=== PATIENT | male | born 1995 | race American Indian/Alaskan Native ===

== ENCOUNTER 2020-08-25 20:09 | Emergency (ER) | payer OTHER ==
--- NOTE | 2020-08-25 20:42 | EDM.PDOCBH ---
ED HPI GENERAL MEDICAL PROBLEM - General Chief Complaint: Behavioral/Psych Stated Complaint: POSSIBLE OVER DOSE Time Seen by Provider: 08/25/20 20:45 Source of Information: Reports: Patient, Old Records, RN History Limitations: Reports: No Limitations - History of Present Illness INITIAL COMMENTS - FREE TEXT/NARRATIVE: 25 yo male inmate has been hoarding his Klonopin for several days then took 20 x 0.1 mg dose all together about 1930h tonight. The aquatics coordinator became aware and brought him in for eval. Denies suicidal ideation. No other apparent ingestions. Onset: Today Onset Date: 08/25/20 Onset Time: 21:30 Duration: Minutes:, Constant Location: Reports: Generalized Quality: Reports: Other (pain not reported) Severity: Moderate Improves with: Reports: None Worsens with: Reports: None Context: Reports: Other (See HPI) Associated Symptoms: Reports: Other (sedation) Treatments [employer]ER: Reports: Other (see below) (none) - Related Data Allergies Allergy/AdvReac Type Severity Reaction Status Date / Time No Known Allergies Allergy Verified 08/25/20 20:31 Home Meds: Home Meds OLANZapine [Zyprexa] 10 mg PO BEDTIME 08/25/20 [History] cloNIDine [Catapres] 0.1 mg PO Q8H 08/25/20 [History] Past Medical History - Past Health History Medical/Surgical History: Denies Medical/Surgical History Musculoskeletal History: Reports: Fracture Psychiatric History: Reports: ADHD, Addiction, Anxiety, Bipolar, Depression, Psych Hospitalization(s), Suicide Attempt, Suicidal Ideation, Other (See Below) Other Psychiatric History: schizoaffective. 2010 in patient psych - Infectious Disease History Infectious Disease History: Reports: Chicken Pox - Past Surgical History HEENT Surgical History: Reports: Naso-Sinus Surgery Social & Family History - Tobacco Use Tobacco Use Status *Q: Current Every Day Tobacco User Years of Tobacco use: 14 Packs/Tins Daily: 2 Used Tobacco, but Quit: No - Caffeine Use Caffeine Use: Reports: Coffee, Energy Drinks, Soda, Tea - Alcohol Use Days Per Week of Alcohol Use: 7 Number of Drinks Per Day: 10 Total Drinks Per Week: 70 - Recreational Drug Use Recreational Drug Use: Yes Drug Use in Last 12 Months: Yes Recreational Drug Type: Reports: Cocaine, Heroin, Marijuana/Hashish, Methamphetamine, Other (see below) Other Recreational Drug Type: pills Recreational Drug Use Frequency: Not Used In Over 2 Months ED ROS GENERAL - Review of Systems Review Of Systems: See Below Constitutional: Reports: Malaise, Other (sleepiness) HEENT: Reports: No Symptoms Respiratory: Reports: No Symptoms Cardiovascular: Reports: No Symptoms GI/Abdominal: Reports: No Symptoms : Reports: No Symptoms Musculoskeletal: Reports: No Symptoms Skin: Reports: No Symptoms Neurological: Reports: Other (mild sedation) ED EXAM, BEHAVIORAL HEALTH - Physical Exam Exam: See Below Exam Limited By: No Limitations General Appearance: Alert, WD/WN, No Apparent Distress Eye Exam: Bilateral Eye: Normal Inspection, PERRL Ears: Normal External Exam, Normal Canal, Hearing Grossly Normal Nose: Normal Inspection, No Blood Throat/Mouth: Normal Inspection, Normal Lips, Normal Oropharynx, Normal Voice, No Airway Compromise Head: Atraumatic, Normocephalic Neck: Normal Inspection Respiratory/Chest: No Respiratory Distress, Lungs Clear, Normal Breath Sounds, No Accessory Muscle Use Cardiovascular: Regular Rate, Rhythm, No Edema GI/Abdominal: Normal Bowel Sounds, Soft, Non-Tender, No Distention Back Exam: Normal Inspection. No: CVA Tenderness (R), CVA Tenderness (L) Extremities: Normal Inspection, Normal Range of Motion, Non-Tender, No Pedal Edema Neurological: Alert, Normal Mood/Affect, CN II-XII Intact, Normal Cognition, Oriented x 3 Psychiatric: Alert, Normal Affect, Normal Cognition, Normal Mood, Oriented Skin Exam: Warm, Dry, Intact, Normal color, No rash #1 Interpretation EKG Date: 08/25/20 Time: 20:20 Rhythm: NSR Rate (Beats/Min): 64 [place]: Normal P-Wave: Present QRS: Normal ST-T: Normal QT: Normal Comparison: NA - No Prior EKG (peaked T waves.) COURSE, BEHAVIORAL HEALTH COMP - Course Vital Signs: Last Vital Signs Temp 36.3 C 08/25/20 20:20 Pulse 78 08/25/20 21:40 Resp 15 08/25/20 21:40 BP 107/59 L 08/25/20 21:40 Pulse Ox 95 08/25/20 21:40 Orders, Labs, Meds: Active Orders 24 hr Category Date Time Status EKG Documentation Completion [RC] ASDIRECTED Care 08/25/20 20:48 Active DRUG SCREEN, URINE [URCHEM] Stat Lab 08/25/20 20:17 Ordered EKG 12 Lead [EK] Routine Ther 08/25/20 20:48 Ordered Laboratory Tests 08/25/20 08/25/20 08/25/20 Range/Units 20:38 20:38 20:38 Sodium 141 (140-148) mmol/L Potassium 4.0 (3.6-5.2) mmol/L Chloride 103 (100-108) mmol/L Carbon Dioxide 27 (21-32) mmol/L Anion Gap 10.7 (5.0-14.0) mmol/L BUN 13 (7-18) mg/dL Creatinine 1.0 (0.8-1.3) mg/dL Est Cr Clr Drug Dosing 100.13 mL/min Estimated GFR (MDRD) > 60 (>60) Glucose 121 H (74-106) mg/dL Calcium 8.8 (8.5-10.1) mg/dL Total Bilirubin 0.3 (0.2-1.0) mg/dL AST 17 (15-37) U/L ALT 38 (12-78) U/L Alkaline Phosphatase 43 L (46-116) U/L Total Protein 6.5 (6.4-8.2) g/dL Albumin 3.7 (3.4-5.0) g/dL Globulin 2.8 (2.3-3.5) g/dL Albumin/Globulin Ratio 1.3 (1.2-2.2) Salicylates 1.1 L (2.0-20.0) mg/dL Acetaminophen 0.0 L (10.0-30.0) ug/mL Ethyl Alcohol mg/dL 08/25/20 Range/Units 20:38 Sodium (140-148) mmol/L Potassium (3.6-5.2) mmol/L Chloride (100-108) mmol/L Carbon Dioxide (21-32) mmol/L Anion Gap (5.0-14.0) mmol/L BUN (7-18) mg/dL Creatinine (0.8-1.3) mg/dL Est Cr Clr Drug Dosing mL/min Estimated GFR (MDRD) (>60) Glucose (74-106) mg/dL Calcium (8.5-10.1) mg/dL Total Bilirubin (0.2-1.0) mg/dL AST (15-37) U/L ALT (12-78) U/L Alkaline Phosphatase (46-116) U/L Total Protein (6.4-8.2) g/dL Albumin (3.4-5.0) g/dL Globulin (2.3-3.5) g/dL Albumin/Globulin Ratio (1.2-2.2) Salicylates (2.0-20.0) mg/dL Acetaminophen (10.0-30.0) ug/mL Ethyl Alcohol < 3 mg/dL Medications Discontinued Medications Generic Name Dose Route Start Last Admin Trade Name Marvin PRN Reason Stop Dose Admin Charcoal 50 gm 08/25/20 20:49 08/25/20 20:58 Actidose-Aqua PO 08/25/20 20:50 50 gm ONETIME ONE Administration Re-Assessment/Re-Exam: Drank the activated charcoal without issue. Is already feeling better he says. Re-Assessment/Re-Exam Date: 08/25/20 (no sign of extreme sedation, will discharge. ) Departure - Departure Time of Disposition: 22:30 Disposition: Home, Self-Care 01 Condition: Good Clinical Impression: Benzodiazepine (tranquilizer) overdose Qualifiers: Encounter type: initial encounter Injury intent: undetermined intent Qualified Code(s): T42.4X4A - Poisoning by benzodiazepines, undetermined, initial encounter - Discharge Information *PRESCRIPTION DRUG MONITORING PROGRAM REVIEWED*: No *COPY OF PRESCRIPTION DRUG MONITORING REPORT IN PATIENT [place]: No Referrals: PCP,None [Primary Care Provider] - Forms: ED Department Discharge Additional Instructions: Resume normal medications. Return as needed. Sepsis Event Note (ED) - Evaluation Sepsis Screening Result: No Definite Risk - Focused Exam Vital Signs: Vital Signs Temp Pulse Resp BP Pulse Ox 08/25/20 21:40 78 15 107/59 L 95 08/25/20 21:20 76 113/62 08/25/20 20:55 65 115/62 08/25/20 20:32 18 96 08/25/20 20:20 36.3 C 83 18 107/61 96 - My Orders Last 24 Hours: My Active Orders 08/25/20 20:17 DRUG SCREEN, URINE [URCHEM] Stat 08/25/20 20:48 EKG Documentation Completion [RC] ASDIRECTED EKG 12 Lead [EK] Routine - Assessment/Plan Last 24 Hours: My Active Orders 08/25/20 20:17 DRUG SCREEN, URINE [URCHEM] Stat 08/25/20 20:48 EKG Documentation Completion [RC] ASDIRECTED EKG 12 Lead [EK] Routine
[2020-08-25] MEDS ORDERED: Activated Charcoal/Water Susp 25 GM/120 ML Tube PO ONE (20:49)
[2020-08-25 21:45] VITALS: BP 107/59; PULSE 78
== END 2020-08-25 22:32 | disposition home or self-care (01) ==
LOC: JP.ED 20:09
DX: T42.4X4A Poisoning by benzodiazepines, undetermined, initial encounter (principal); F41.9 Anxiety disorder, unspecified; F31.9 Bipolar disorder, unspecified; F25.9 Schizoaffective disorder, unspecified; F17.210 Nicotine dependence, cigarettes, uncomplicated; Z79.899 Other long term (current) drug therapy
CPT/HCPCS: 36415; 80053; 80307; 93005; 93010; 99284-25

== ENCOUNTER 2022-07-29 06:17 | Emergency (ER) | payer OTHER ==
[2022-07-29] MEDS ORDERED: Sodium Chloride 0.9% 10 ML Syringe FLUSH PRN (06:20)
[2022-07-29] MEDS ORDERED: Sodium Chloride 0.9% 1,000 ML IV ONE (06:24)
[2022-07-29 06:50] LABS: ESTIMATED GFR 104 mL/min (>60)
[2022-07-29 10:32] VITALS: BP 116/81; PULSE 95
== END 2022-07-29 10:20 ==
LOC: JP.ED 06:17
DX: F15.129 Other stimulant abuse with intoxication, unspecified (principal); F12.10 Cannabis abuse, uncomplicated; F13.10 Sedative, hypnotic or anxiolytic abuse, uncomplicated; R40.2422 Glasgow coma scale score 9-12, at arrival to emergency department; R00.0 Tachycardia, unspecified
CPT/HCPCS: 36415; 80053; 80305; 80307; 82803; 85025; 93005; 96360; 99284; J3490; J7030

== ENCOUNTER 2022-10-13 18:46 | Emergency (ER) | payer OTHER ==
[2022-10-13 19:00] VITALS: BP 130/86; PULSE 119
== END 2022-10-13 19:07 ==
LOC: JP.ED 18:46
DX: F19.10 Other psychoactive substance abuse, uncomplicated (principal); F17.210 Nicotine dependence, cigarettes, uncomplicated
CPT/HCPCS: 99283

== ENCOUNTER 2023-02-22 20:52 | Emergency (ER) | payer MEDICAID, OTHER ==
[2023-02-23 02:59] VITALS: BP 128/71; PULSE 111
== END 2023-02-22 21:05 ==
LOC: JP.ED 20:52
DX: F10.920 Alcohol use, unspecified with intoxication, uncomplicated (principal); Z02.89 Encounter for other administrative examinations
CPT/HCPCS: 99282

== ENCOUNTER 2024-09-09 08:57 | Emergency (ER) | payer MEDICAID ==
[2024-09-09 09:16] LABS: BASOPHILS ABSOLUTE AUTO 0.04 K/uL (0.00-0.10); BASOPHILS PERCENT AUTO 0.4 % (0.1-1.3); HEMOGLOBIN 15.4 g/dL (12.9-16.9); IMMATURE GRAN ABSOLUTE AUTO 0.04 K/uL (0.00-0.23); IMMATURE GRAN PERCENT AUTO 0.4 % (0.0-0.7); LYMPHOCYTES ABSOLUTE AUTO 1.49 K/uL (0.8-3.3); LYMPHOCYTES PERCENT AUTO 15.6 % (11.4-47.7); MEAN CORPUSCULAR HEMOGLOBIN 32.5 pg (31.6-35.5); MEAN CORPUSCULAR HGB CONC 36.7 g/dL (31.6-35.5); MEAN CORPUSCULAR VOLUME 88.6 fL (81.4-99.0); MONOCYTES ABSOLUTE AUTO 0.42 K/uL (0.20-0.90); MONOCYTES PERCENT AUTO 4.4 % (3.3-12.6); NEUTROPHILS ABSOLUTE AUTO 7.49 K/uL (1.0-7.6); NEUTROPHILS PERCENT AUTO 78.2 % (40.0-78.1); PLATELET COUNT,PLT 259 K/uL (130-375); RED BLOOD CELL COUNT 4.74 M/uL (4.14-5.76); WHITE BLOOD CELL COUNT,WBC 9.6 K/uL (3.2-11.0)
[2024-09-09] MEDS: LORazepam 2 MG/ML SDV IM ONE (09:18)
[2024-09-09 09:45] LABS: A/G RATIO 1.1 (1.2-2.2); ALANINE AMINOTRANSFERASE,ALT 62 U/L (12-78); ALBUMIN 4.1 g/dL (3.4-5.0); ALKALINE PHOSPHATASE 48 U/L (46-116); ASPARTATE AMNIOTRANSFERASE,AST 33 U/L (15-37); BILIRUBIN TOTAL 0.8 mg/dL (0.2-1.0); BLOOD UREA NITROGEN,BUN 12 mg/dL (7-18); CALCIUM 8.7 mg/dL (8.5-10.1); CARBON DIOXIDE,CO2 18 mmol/L (21-32); CHLORIDE,CL 100 mmol/L (100-108); CREATININE 1.3 mg/dL (0.8-1.3); ESTIMATED GFR 75 mL/min (>60); GLUCOSE RANDOM 116 mg/dL (74-106); MAGNESIUM 1.9 mg/dL (1.8-2.4); POTASSIUM,K 3.5 mmol/L (3.6-5.2); PROTEIN TOTAL,TP 7.8 g/dL (6.4-8.2); SODIUM,NA 135 mmol/L (140-148); TSH ULTRASENSITIVE 0.952 uIU/mL (0.358-3.740)
[2024-09-09 09:49] LABS: ANION GAP 20.5 mmol/L (5.0-14.0)
[2024-09-09] MEDS: Sodium Chloride 0.9% 1,000 ML IV ONE (10:00)
[2024-09-09] MEDS: LORazepam 2 MG/ML SDV IVPUSH ONE ×4 (10:11→15:19)
[2024-09-09 11:04] LABS: APPEARANCE,URINE CLOUDY (CLEAR); BILIRUBIN,URINE NEGATIVE (NEGATIVE); COLOR,URINE YELLOW (YELLOW); GLUCOSE,URINE NEGATIVE (NEGATIVE); KETONES,URINE 80 mg/dL (NEGATIVE); LEUKOCYTE ESTERASE,URINE NEGATIVE (NEGATIVE); NITRITE,URINE NEGATIVE (NEGATIVE); OCCULT BLOOD,URINE NEGATIVE (NEGATIVE); PROTEIN,URINE NEGATIVE (NEGATIVE)
[2024-09-09 11:11] LABS: AMORPHOUS SEDIMENT,URINE MODERATE; BACTERIA,URINE NOT SEEN; EPITHELIAL CELLS,URINE NOT SEEN; MUCUS,URINE NOT SEEN; RBC,URINE 0-5 (0-5); WBC,URINE 0-5 (0-5)
[2024-09-09 11:12] LABS: AMPHETAMINES SCREEN, URINE NEGATIVE (NEGATIVE); BARBITURATE SCREEN,URINE NEGATIVE (NEGATIVE); BENZODIAZEPINES SCREEN,URINE NEGATIVE (NEGATIVE); METHADONE SCREEN, URINE NEGATIVE (NEGATIVE); METHAMPHETAMINES SCREEN, URINE PRESUMPTIVE POSITIVE (NEGATIVE); OXYCODONE SCREEN,URINE NEGATIVE (NEGATIVE); PROPOXYPHENE SCREEN,URINE NEGATIVE (NEGATIVE); THC SCREEN,URINE 50 NG/ML PRESUMPTIVE POSITIVE (NEGATIVE)
[2024-09-09] MEDS: Magnesium Sulfate/Water Premix 2 GM in Premix Bag 1 BAG IV ONE (11:35)
[2024-09-09] MEDS: Sodium Chloride 0.9% 1,000 ML IV SCH (11:36)
[2024-09-09] MEDS: Potassium Chloride 20 MEQ in Premix Bag 1 BAG IV ONE ×2 (11:37→14:17)
[2024-09-09 13:00] VITALS: BP 129/84; PULSE 107
[2024-09-09 13:36] LABS: ANION GAP 17.8 mmol/L (5.0-14.0); CALCIUM 7.6 mg/dL (8.5-10.1); CREATININE 1.2 mg/dL (0.8-1.3); EST CRCL DRUG DOSING (CG) 89.19 mL/min; MAGNESIUM 2.4 mg/dL (1.8-2.4); POTASSIUM,K 3.8 mmol/L (3.6-5.2)
== END 2024-09-09 15:45 ==
LOC: JP.ED 08:57
DX: T43.592A Poisoning by other antipsychotics and neuroleptics, intentional self-harm, initial encounter (principal); T43.292A Poisoning by other antidepressants, intentional self-harm, initial encounter; R45.1 Restlessness and agitation; R82.5 Elevated urine levels of drugs, medicaments and biological substances; Z79.899 Other long term (current) drug therapy
CPT/HCPCS: 36415; 71045; 80048; 80053; 80143; 80179; 80305; 80307; 81001; 83735; 84443; 85025; 93005; 96365; 96366; 96367; 96368; 96372; 96375; 96376; 99285; C1758; J2060; J3475; J3480; J7030; 93010

== ENCOUNTER 2024-12-08 08:59 | Emergency (ER) | payer MEDICAID ==
[2024-12-08 09:44] LABS: BASOPHILS ABSOLUTE AUTO 0.05 K/uL (0.00-0.10); BASOPHILS PERCENT AUTO 0.7 % (0.1-1.3); EOSINOPHILS ABSOLUTE AUTO 0.25 K/uL (0.00-0.40); EOSINOPHILS PERCENT AUTO 3.4 % (0.0-5.4); HEMATOCRIT 40.2 % (38.4-49.7); HEMOGLOBIN 13.7 g/dL (12.9-16.9); IMMATURE GRAN PERCENT AUTO 0.3 % (0.0-0.7); LYMPHOCYTES ABSOLUTE AUTO 1.92 K/uL (0.8-3.3); LYMPHOCYTES PERCENT AUTO 26.2 % (11.4-47.7); MEAN CORPUSCULAR HGB CONC 34.1 g/dL (31.6-35.5); MEAN CORPUSCULAR VOLUME 96.9 fL (81.4-99.0); MONOCYTES ABSOLUTE AUTO 0.41 K/uL (0.20-0.90); MONOCYTES PERCENT AUTO 5.6 % (3.3-12.6); NEUTROPHILS ABSOLUTE AUTO 4.68 K/uL (1.0-7.6); NEUTROPHILS PERCENT AUTO 63.8 % (40.0-78.1); PLATELET COUNT,PLT 219 K/uL (130-375); RED BLOOD CELL COUNT 4.15 M/uL (4.14-5.76); WHITE BLOOD CELL COUNT,WBC 7.3 K/uL (3.2-11.0)
[2024-12-08 09:46] LABS: IMMATURE GRAN ABSOLUTE AUTO 0.02 K/uL (0.00-0.23)
[2024-12-08 10:05] LABS: A/G RATIO 1.1 (1.2-2.2); ALANINE AMINOTRANSFERASE,ALT 53 U/L (12-78); ALBUMIN 3.4 g/dL (3.4-5.0); ALKALINE PHOSPHATASE 45 U/L (46-116); ANION GAP 9.7 mmol/L (5.0-14.0); ASPARTATE AMNIOTRANSFERASE,AST 28 U/L (15-37); BILIRUBIN TOTAL 0.1 mg/dL (0.2-1.0); BLOOD UREA NITROGEN,BUN 13 mg/dL (7-18); CARBON DIOXIDE,CO2 26 mmol/L (21-32); CHLORIDE,CL 104 mmol/L (100-108); EST CRCL DRUG DOSING (CG) 94.08 mL/min; ESTIMATED GFR 103 mL/min (>60); GLUCOSE RANDOM 124 mg/dL (74-106); POTASSIUM,K 4.3 mmol/L (3.6-5.2); PROTEIN TOTAL,TP 6.5 g/dL (6.4-8.2); SODIUM,NA 140 mmol/L (140-148)
[2024-12-08 10:06] VITALS: BP 147/79; PULSE 111
[2024-12-08 10:47] LABS: APPEARANCE,URINE CLEAR (CLEAR); BILIRUBIN,URINE NEGATIVE (NEGATIVE); COLOR,URINE YELLOW (YELLOW); GLUCOSE,URINE NEGATIVE (NEGATIVE); KETONES,URINE NEGATIVE (NEGATIVE); LEUKOCYTE ESTERASE,URINE NEGATIVE (NEGATIVE); NITRITE,URINE NEGATIVE (NEGATIVE); OCCULT BLOOD,URINE NEGATIVE (NEGATIVE); PROTEIN,URINE NEGATIVE (NEGATIVE); UROBILINOGEN,URINE 0.2 EU/dL (0.2-1.0)
[2024-12-08 10:53] LABS: AMORPHOUS SEDIMENT,URINE MODERATE; AMPHETAMINES SCREEN, URINE NEGATIVE (NEGATIVE); BACTERIA,URINE NOT SEEN; BARBITURATE SCREEN,URINE NEGATIVE (NEGATIVE); BENZODIAZEPINES SCREEN,URINE PRESUMPTIVE POSITIVE (NEGATIVE); EPITHELIAL CELLS,URINE NOT SEEN; METHADONE SCREEN, URINE NEGATIVE (NEGATIVE); METHAMPHETAMINES SCREEN, URINE NEGATIVE (NEGATIVE); MUCUS,URINE NOT SEEN; OXYCODONE SCREEN,URINE NEGATIVE (NEGATIVE); RBC,URINE 0-5 (0-5); WBC,URINE 0-5 (0-5)
[2024-12-08 10:54] LABS: PROPOXYPHENE SCREEN,URINE NEGATIVE (NEGATIVE); THC SCREEN,URINE 50 NG/ML PRESUMPTIVE POSITIVE (NEGATIVE)
== END 2024-12-08 11:20 ==
LOC: JP.ED 08:59
DX: R33.9 Retention of urine, unspecified (principal); Z79.899 Other long term (current) drug therapy
CPT/HCPCS: 36415; 80053; 80305-QW; 81001; 85025; 99283